=== PATIENT | female | born 1975 | race African-American/Black ===

== ENCOUNTER 2017-04-06 13:09 | Emergency (ER) | payer BC ==
[2017-04-06 13:26] VITALS: TEMP 98.9; BMI 29.2
--- NOTE | 2017-04-06 13:33 | PDOC ---
History of Present Illness - General Chief Complaint: Lightheaded Stated Complaint: DIZZINESS Time Seen by Provider: 04/06/17 13:23 History Source: Patient, Old Records Exam Limitations: No Limitations - History of Present Illness Initial Comments: 04/06/17 13:29 41 y/o female with h/o uterine fibroids, anemia and heavy menses who presents to the ED with c/o dizziness. The patient was at work at approximately 11am when she suddenly felt like she was going to "pass out, " became diaphoretic and generally weak. The patient had multiple episodes that occurred since then and decided to come to the ED. The patient denies chest pain and SOB, palpitations. There was no nausea, vomiting, diarrhea. Her LMP was 03/28/2017 and was heavy. The patient reports starting diet pills yesterday which are high in caffeine. Past History - Travel Traveled outside of the country in the last 30 days: No Close contact w/someone who was outside of country & ill: No - Past Medical History Allergies/Adverse Reactions: Allergies Allergy/AdvReac Type Severity Reaction Status Date / Time No Known Allergies Allergy Verified 04/06/17 13:10 Home Medications: Ambulatory Orders Norethindrone-E.estradiol-Iron [Loestrin Fe 1-20 Tablet] 1 each PO DAILY Anemia: Yes Suicide Attempt (Hx): No - Psycho/Social/Smoking Cessation Hx Anxiety: Yes Suicidal Ideation: No Smoking Status: No Smoking History: Never smoked Number of Cigarettes Smoked Daily: 0 Hx Alcohol Use: Yes (SOCIAL) Drug/Substance Use Hx: No Substance Use Type: Alcohol Review of Systems - Review of Systems Able to Perform ROS?: Yes Is the patient limited Swedish proficient: No Constitutional: Yes: Weakness HEENTM: No: Symptoms Reported Respiratory: No: Symptoms reported Cardiac (ROS): No: Symptoms Reported ABD/GI: No: Symptoms Reported : No: Symptoms Reported Musculoskeletal: No: Symptoms Reported Integumentary: No: Symptoms Reported Neurological: Yes: See HPI *Physical Exam - Vital Signs Last Vital Signs Temp Pulse Resp BP Pulse Ox 98.9 F 83 16 136/66 100 04/06/17 13:10 04/06/17 13:10 04/06/17 13:10 04/06/17 13:10 04/06/17 13:10 - Physical Exam Comments: 04/06/17 13:33 GENERAL: Well developed, well nourished. Awake and alert. No acute distress. HEENT: Normocephalic, atraumatic. PERRLA, EOMI. No conjunctival pallor. Sclera are non- icteric. Moist mucous membranes. Oropharynx is clear. NECK: Supple. Full ROM. No JVD. No lymphadenopathy. CARDIOVASCULAR: Regular rate and rhythm. No murmurs, rubs, or gallops. Distal pulses are 2+ and symmetric. PULMONARY: No evidence of respiratory distress. Lungs clear to auscultation bilaterally. No wheezing, rales or rhonchi. ABDOMINAL: Soft. Non-tender. Non-distended. No rebound or guarding. No organomegaly. Normoactive bowel sounds. MUSCULOSKELETAL Normal range of motion at all joints. No bony deformities or tenderness. No CVA tenderness. EXTREMITIES: No cyanosis. No clubbing. No edema. No calf tenderness. SKIN: Warm and dry. Normal capillary refill. No rashes. No jaundice. NEUROLOGICAL: Alert, awake, appropriate. Cranial nerves 2-12 intact. Grossly non-focal exam. PSYCHIATRIC: Cooperative. Good eye contact. Appropriate mood and affect. ED Treatment Course - LABORATORY CBC & Chemistry Diagram: 04/06/17 13:40 04/06/17 13:40 Medical Decision Making - Medical Decision Making 04/06/17 14:11 41 y/o female with uterine fibroids presents to the ED with c/o light- headedness. DDx includes but is not limited to: anemia, dehydration, electrolyte abnormality, toxic/metabolic derangement, ACS. Plan: 1. EKG: NSR at 80 bpm, nl axis, intervals and no acute ST-segment changes 2. Labs 3. Urine analysis 4. IVF for hydration 5. Observe and re-evaluate 04/06/17 14:23 Addendum: The labs were reviewed and are noted in the EMR. She is anemic and her platelets are elevated; troponin is negative. I have discussed the results of the studies with the patient. My suspicion for cardiac etiology or PE is very low. The patient is feeling improved after 1L IVF. Will discharge home, follow-up with PCP. RTER if Sx persist, worsen or new Sx arise. *DC/Admit/Observation/Transfer Diagnosis at time of Disposition: Light headedness - Discharge Dispostion Disposition: HOME Condition at time of disposition: Stable Admit: No - Patient Instructions Printed Discharge Instructions: DI for Dizziness-Nonvertigo Additional Instructions: You are anemic and would benefit from iron supplements. Please follow-up with your primary care physician within one week and return to the ED if your symptoms persist, worsen or new symptoms arise.
[2017-04-06 13:54] LABS: PH,URINE 6.5 (4.5-8); URINE APPEARANCE Clear; URINE BILIRUBIN Negative (NEGATIVE); URINE BLOOD Negative (NEGATIVE); URINE GLUCOSE (UA) Negative (NEGATIVE); URINE KETONE Negative (NEGATIVE); URINE LEUK ESTERASE Negative (NEGATIVE); URINE NITRITE Negative (NEGATIVE); URINE PROTEIN Negative (NEGATIVE); URINE UROBILINOGEN 0.2 E.U/dl (0.2-1.0)
[2017-04-06 13:56] LABS: URINE COLOR YELLOW
[2017-04-06 13:56] LABS: MCH 21.6 pg (25.7-33.7); MCHC 31.6 g/dl (32.0-36.0); MEAN CELL VOLUME 68.3 fl (80-96); MEAN PLT VOLUME 8.1 fl (7.5-11.1); PLATELET COUNT 618 K/MM3 (134-434); WHITE BLOOD COUNT 9.1 K/mm3 (4.0-10.8)
[2017-04-06 14:08] LABS: ALBUMIN 3.9 g/dl (3.5-5.0); ALK PHOS 37 U/L (32-92); ANION GAP 7 (8-16); CALCIUM 9.7 mg/dl (8.4-10.2); CO2 25 mmol/L (22-28); CPK(DFH) 148 IU/L (26-140); CREATININE 0.9 mg/dl (0.6-1.3); GLUCOSE,RANDOM 135 mg/dl (74-106); SGOT/AST 21 U/L (10-42); SGPT/ALT 15 U/L (10-40); TOT PROT 8.1 g/dl (6.4-8.3)
[2017-04-06] MEDS ORDERED: SODIUM CHLORIDE 1,000 ML IV STA (14:13)
[2017-04-06 14:15] LABS: TROPONIN I (DFP) < 0.03 ng/ml (0.03-0.50)
[2017-04-06 14:22] LABS: BILIRUBIN,TOTAL 0.2 mg/dl (0.2-1.0)
[2017-04-06 15:06] LABS: ANISOCYTOSIS 1+; HYPOCHROMIA 2+; MICROCYTOSIS 2+; PLATELET COMMENT2 MANY LARGE PLTS; PLATELET ESTIMATE INCREASED (NORMAL)
[2017-04-06 15:25] VITALS: BP 105/57; PULSE 77
--- NOTE | 2017-04-07 08:59 | EKG ---
Test Reason : Blood Pressure : / mmHG Vent. Rate : 070 BPM Atrial Rate : 070 BPM P-R Int : 132 ms QRS Dur : 070 ms QT Int : 388 ms P-R-T Axes : 040 036 039 degrees QTc Int : 419 ms POOR DATA QUALITY, INTERPRETATION MAY BE ADVERSELY AFFECTED NORMAL SINUS RHYTHM NORMAL ECG NO PREVIOUS ECGS AVAILABLE Confirmed by BETINA DAVILA, CHARLES ([id number]) on 04/07/2017 8:59:26 AM Referred By: NANETTE HARO Confirmed By:CHARLES MOFFETT MD
== END 2017-04-06 15:30 | disposition home or self-care (01) ==
LOC: MERGE 13:09 → FER 13:09
PROC: 3E0337Z Introduction of Electrolytic and Water Balance Substance into Peripheral Vein, Percutaneous Approach (ICD-10-PCS; principal; 2017-04-06)
DX: R42 Dizziness and giddiness (principal); D64.9 Anemia, unspecified; F41.9 Anxiety disorder, unspecified; D25.9 Leiomyoma of uterus, unspecified
CPT/HCPCS: 36415; 80053; 81003; 82550; 84484; 84703; 85025; 93005; 99283-25

== ENCOUNTER 2017-04-07 22:10 | Inpatient (IN) | payer BC, OTHER ==
--- NOTE | 2017-04-07 22:12 | PDOC ---
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 No associated problems or complaints. Seen here yesterday because she felt like she might pass out. Past History - Past Medical History Allergies/Adverse Reactions: Allergies Allergy/AdvReac Type Severity Reaction Status Date / Time No Known Allergies Allergy Verified 04/07/17 22:24 Home Medications: Ambulatory Orders NK [No Known Home Medication] 04/07/17 Review of Systems - Review of Systems Able to Perform ROS?: Yes Is the patient limited Icelandic proficient: No Constitutional: Yes: See HPI HEENTM: No: Symptoms Reported Respiratory: No: Symptoms reported Cardiac (ROS): No: Symptoms Reported ABD/GI: No: See HPI : Yes: See HPI Musculoskeletal: No: Symptoms Reported Integumentary: No: Symptoms Reported Neurological: No: Symptoms reported Psychiatric: No: Anxiety, Depression Endocrine: No: Symptoms Reported Hematologic/Lymphatic: No: Symptoms Reported All Other Systems: Reviewed and Negative *Physical Exam - Physical Exam General Appearance: Yes: Nourished, Appropriately Dressed. No: Apparent Distress HEENT: positive: EOMI, AMINA, Normal ENT Inspection, Normal Voice Neck: positive: Trachea midline, Normal Thyroid, Supple. negative: Tender Respiratory/Chest: positive: Lungs Clear, Normal Breath Sounds. negative: Chest Tender Cardiovascular: positive: Regular Rhythm, Regular Rate, S1, S2 Gastrointestinal/Abdominal: positive: Normal Bowel Sounds, Flat, Soft. 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
[2017-04-07] MEDS ORDERED: KETOROLAC TROMETHAMINE 30 MG/1 ML VIAL IVPUSH ONE (22:21)
[2017-04-07] MEDS ORDERED: SODIUM CHLORIDE 1,000 ML IV STA (22:21)
[2017-04-07 22:43] LABS: MCH 21.8 pg (25.7-33.7); MCHC 31.9 g/dl (32.0-36.0); MEAN CELL VOLUME 68.1 fl (80-96); MEAN PLT VOLUME 8.4 fl (7.5-11.1); PLATELET COUNT 544 K/MM3 (134-434); RDW 17.2 % (11.6-15.6); WHITE BLOOD COUNT 17.7 K/mm3 (4.0-10.8)
[2017-04-07] MEDS ORDERED: ONDANSETRON 4 MG/2 ML VIAL IVPUSH ONE (22:43)
[2017-04-07] MEDS ORDERED: HYDROmorphone HCL CARPU-JECT 2 MG/1 ML DISP.SYRIN IVPUSH ONE (22:43)
[2017-04-07 22:57] LABS: INR 1.17 (0.82-1.09); PROTHROMBIN TIME (PATIENT) 13.1 SEC (10.2-13.0)
[2017-04-07 22:59] LABS: ALK PHOS 38 U/L (32-92); ANION GAP 12 (8-16); CALCIUM 8.9 mg/dl (8.4-10.2); CO2 19 mmol/L (22-28); GLUCOSE,RANDOM 136 mg/dl (74-106); SGOT/AST 30 U/L (10-42); SGPT/ALT 25 U/L (10-40); TOT PROT 7.9 g/dl (6.4-8.3)
[2017-04-07 23:20] LABS: URINE APPEARANCE Clear; URINE BILIRUBIN Negative (NEGATIVE); URINE BLOOD Negative (NEGATIVE); URINE COLOR YELLOW; URINE GLUCOSE (UA) Negative (NEGATIVE); URINE KETONE 3+ (NEGATIVE); URINE LEUK ESTERASE Negative (NEGATIVE); URINE NITRITE Negative (NEGATIVE); URINE PROTEIN Negative (NEGATIVE); URINE UROBILINOGEN 0.2 E.U/dl (0.2-1.0)
[2017-04-07 23:28] LABS: ANISOCYTOSIS 1+; HYPOCHROMIA 2+; MICROCYTOSIS 2+; PLATELET ESTIMATE INCREASED (NORMAL)
[2017-04-08 00:35] VITALS: BMI 30.2
[2017-04-08] MEDS ORDERED: ACETAMINOPHEN INJECTION 100 ML IVPB ONE (01:55)
[2017-04-08] MEDS: ACETAMINOPHEN 1000 MG/100 ML VIAL (NON FORMULARY) IVPB ONE ×2 (01:58→03:04)
[2017-04-08 02:23] LABS: BASOPHIL 0.2 % (0-2.0); MEAN CELL VOLUME 67.7 fl (80-96); MEAN PLT VOLUME 8.5 fl (7.5-11.1); PLATELET COUNT 435 K/MM3 (134-434); RDW 17.5 % (11.6-15.6); WHITE BLOOD COUNT 16.6 K/mm3 (4.0-10.0)
[2017-04-08] MEDS ORDERED: HYDROmorphone HCL CARPU-JECT 2 MG/1 ML DISP.SYRIN ONE (02:44)
[2017-04-08] MEDS: HYDROmorphone HCL CARPU-JECT 1 MG/1 ML DISP.SYRIN IVPUSH ONE ×2 (02:45→03:00)
[2017-04-08] MEDS ORDERED: HYDROmorphone HCL CARPU-JECT 1 MG/1 ML DISP.SYRIN IVPUSH ONE ×6 (02:45→02:59)
--- NOTE | 2017-04-08 08:11 | CONSULT ---
- Consultation REQUESTING PROVIDER: Marian DAVILA CONSULT REQUEST: We have been asked to surgically evaluate this patient for evaluation and management of abdominal pain PCP:Manuel Dos Santos HISTORY OF PRESENT ILLNESS:41 y/o A/A/F presented w/ sudden onset of ?right flank pain followed by generalized abdominal pain w/some nausea; no vomiting; she ate w/o incident prior to the pain starting she has never had this before; she denies GI/ problems in the past; she pitts known h/o " difficult" ovulation and uterine fibroids; she had a CT scan for this in the recent past at [facility].Pain increased by moving around; decreased by lying still; she had fever in the ER; received IV Tylenol; no fever now. NOC. Her is w/ her; she denies anorexia. PMHx: none PSHx: C-S Home Medications Medication Instructions Recorded NK [No Known Home Medication] 04/07/17 Allergies Allergy/AdvReac Type Severity Reaction Status Date / Time No Known Allergies Allergy Verified 04/07/17 22:24 PHYSICAL EXAM: GENERAL: Awake, alert, and fully oriented, in no acute distress. ABDOMEN: Soft, globally tender, not distended, normoactive bowel sounds, voluntary guarding, no rebound, no masses. Enlarged uterus; no hernias. MUSCULOSKELETAL: Normal ROM at all joints. No bony deformities or tenderness. No CVA tenderness. UPPER EXTREMITIES: 2+ pulses, warm, well-perfused. No cyanosis. Cap refill <2 seconds. No peripheral edema. LOWER EXTREMITIES: 2+ pulses, warm, well-perfused. No calf tenderness. No peripheral edema. NEUROLOGICAL: Normal speech, gait not observed. PSYCH: Cooperative. Good eye contact. Appropriate mood and affect. SKIN: Warm, dry, normal turgor, no rashes or lesions noted. Vital Signs Temperature 98.8 F 04/08/17 04:21 Pulse Rate 106 H 04/08/17 04:21 Respiratory Rate 18 04/08/17 04:21 Blood Pressure 98/44 04/08/17 04:21 O2 Sat by Pulse Oximetry (%) 97 04/08/17 04:21 Lab Results WBC 16.6 K/mm3 (4.0-10.0) H 04/08/17 01:50 RBC 3.60 M/mm3 (3.60-5.2) 04/08/17 01:50 Hgb 7.5 GM/dL (10.7-15.3) L 04/08/17 01:50 Hct 24.3 % (32.4-45.2) L 04/08/17 01:50 MCV 67.7 fl (80-96) L 04/08/17 01:50 MCHC 31.0 g/dl (32.0-36.0) L 04/08/17 01:50 RDW 17.5 % (11.6-15.6) H 04/08/17 01:50 Plt Count 435 K/MM3 (134-434) H 04/08/17 01:50 Sodium 132 mmol/L (136-145) L 04/07/17 22:30 Potassium 3.8 mmol/L (3.5-5.1) 04/07/17 22:30 Chloride 101 mmol/L (98-107) 04/07/17 22:30 Carbon Dioxide 19 mmol/L (22-28) L 04/07/17 22:30 Anion Gap 12 (8-16) 04/07/17 22:30 BUN 10 mg/dl (7-18) 04/07/17 22:30 Creatinine 1.0 mg/dl (0.6-1.3) 04/07/17 22:30 Random Glucose 136 mg/dl (74-106) H 04/07/17 22:30 Calcium 8.9 mg/dl (8.4-10.2) 04/07/17 22:30 INR 1.17 (0.82-1.09) 04/07/17 22:30 CT scan a/p w/o IV or oral contrast reviewed; no primary or secondary signs of acute appendicitis; enlarged uterus IMP: abdominal pain PLAN: NPO/IVF/serial exams; pelvic US/? repeat CT scan a/p w/PO and IV contrast Will f/u. Fili Del Angel MD [facility] Visit type - Case Type Case Type: ED Admission - Emergency Emergency Visit: Yes ED Registration Date: 04/08/17 Care time: The patient presented to the Emergency Department on the above date and was hospitalized for further evaluation of their emergent condition. - New patient This patient is new to me today: Yes Date on this admission: 04/08/17 - Critical Care Critical Care patient: No
[2017-04-08 08:50] LABS: MCH 21.1 pg (25.7-33.7); MCHC 30.8 g/dl (32.0-36.0); MEAN CELL VOLUME 68.4 fl (80-96); MEAN PLT VOLUME 8.4 fl (7.5-11.1); PLATELET COUNT 445 K/MM3 (134-434); WHITE BLOOD COUNT 24.3 K/mm3 (4.0-10.8)
[2017-04-08] MEDS ORDERED: HYDROmorphone HCL CARPU-JECT 1 MG/1 ML DISP.SYRIN IVPB PRN (09:12)
[2017-04-08] MEDS ORDERED: SODIUM CHLORIDE 1,000 ML IV SCH ×2 (09:15→10:14)
[2017-04-08] MEDS ORDERED: METRONIDAZOLE 500 MG PREMIXED 100 ML IVPB SCH (10:00)
[2017-04-08] MEDS ORDERED: LEVOFLOXACIN 500 MG IVPB 100 ML IVPB SCH (10:00)
--- NOTE | 2017-04-08 10:03 | PN ---
[id number] OBJECTIVE: patient is a 41 y/o female with a past medical history of uternine fibroids and anemia. past surgical history of 15 years ago. She was admitted from the emergency department for abdominal pain. Vital Signs Temperature 98.8 F 04/08/17 04:21 Pulse Rate 106 H 04/08/17 04:21 Respiratory Rate 18 04/08/17 04:21 Blood Pressure 98/44 04/08/17 04:21 O2 Sat by Pulse Oximetry (%) 97 04/08/17 04:21 GENERAL: The patient is awake, alert, and fully oriented, anxious. . HEAD: Normal with no signs of trauma. EYES: PERRL, extraocular movements intact, pale sclera and conjunctiva clear. No ptosis. ENT: Ears normal, nares patent, oropharynx clear without exudates, moist mucous membranes. NECK: Trachea midline, full range of motion, supple. LUNGS: Breath sounds equal, clear to auscultation bilaterally, no wheezes, no crackles, no accessory muscle use. HEART: Regular rate and rhythm, S1, S2 without murmur, rub or gallop. ABDOMEN: Soft, generalized abdominal tenderness, nondistended, normoactive bowel sounds, + left cva tenderness, no guarding, no rebound, no hepatosplenomegaly, no masses. EXTREMITIES: 2+ pulses, warm, well-perfused, no edema. NEUROLOGICAL: Cranial nerves II through XII grossly intact. Normal speech, gait not observed. PSYCH: Normal mood, normal affect. SKIN: Warm, dry, normal turgor, no rashes or lesions noted Laboratory Results - last 24 hr 04/08/17 08:10 WBC 24.3 H D RBC 3.84 Hgb 8.1 L Hct 26.2 L MCV 68.4 L MCHC 30.8 L RDW 17.0 H Plt Count 445 H MPV 8.4 Active Medications Generic Name Dose Route Start Last Admin Trade Name Freq PRN Reason Stop Dose Admin Acetaminophen 1,000 mg 04/08/17 09:45 Ofirmev Injection - IVPB 04/08/17 09:46 ONCE ONE Hydromorphone HCl 1 mg 04/08/17 09:12 Dilaudid Injection - IVPB Q4H PRN Levofloxacin 100 mls @ 100 mls/hr 04/08/17 10:00 Levaquin 500 Mg Premixed Ivpb - IVPB DAILY ASHLEY Metronidazole 100 mls @ 100 mls/hr 04/08/17 10:00 Flagyl 500mg Premixed Ivpb - IVPB Q8H-IV ASHLEY Sodium Chloride 1,000 mls @ 75 mls/hr 04/08/17 09:15 Normal Saline - IV ASDIR ASHLEY ASSESSMENT/PLAN: 1) abd pain - ct scan of abd/pelvis reviewed, enlarged uterus noted, pt is febrile tmax with leukocytosis repeat ct scan of abd/pelvis with oral & IV contrast to access for abscess formation. - prn pain medication - keep npo 2) sepsis -likely secondary to pyelonephritis vs intrabdominal abscess vs appendicitis - leukocytosis pt febrile, lactic acid ordered, pending blood cultures, urine culture ordered - iv fluids increased to ns @125ml/hr - cva tenderness noted on exam advise rocephin 2gm IV - close monitoring of cbc and fever curve 3) heme microcytic anemia - hgb 8.1 unknown baseline, pt is asymptomatic maybe dilutional - advise to repeat cbc at 1800 Thank you for this consultative opportunity will follow. Problem List - Problems (1) Abdominal pain Code(s): R10.9 - UNSPECIFIED ABDOMINAL PAIN Qualifiers: Abdominal location: right lower quadrant Qualified Code(s): R10.31 - Right lower quadrant pain (2) Fever Code(s): R50.9 - FEVER, UNSPECIFIED Qualifiers: Fever type: unspecified Qualified Code(s): R50.9 - Fever, unspecified (3) Leukocytosis Code(s): D72.829 - ELEVATED WHITE BLOOD CELL COUNT, UNSPECIFIED Qualifiers: Leukocytosis type: unspecified Qualified Code(s): D72.829 - Elevated white blood cell count, unspecified Visit type - Case Type Case Type: ED Admission - Emergency Emergency Visit: Yes ED Registration Date: 04/08/17 Care time: The patient presented to the Emergency Department on the above date and was hospitalized for further evaluation of their emergent condition. - New patient This patient is new to me today: Yes Date on this admission: 04/09/17 - Critical Care Critical Care patient: No
[2017-04-08] MEDS ORDERED: ACETAMINOPHEN 1000 MG/100 ML VIAL (NON FORMULARY) IVPB ONE (10:10)
[2017-04-08] MEDS ORDERED: SODIUM CHLORIDE 1,000 ML IV STA (10:35)
[2017-04-08 13:30] LABS: GLUCOSE,RANDOM 113 mg/dl (74-106)
[2017-04-08 13:31] LABS: ALBUMIN 3.2 g/dl (3.5-5.0); ANION GAP 8 (8-16); BILIRUBIN,TOTAL 0.2 mg/dl (0.2-1.0); CO2 19 mmol/L (22-28); COCKROFT - GAULT 109.3355; CREATININE 0.8 mg/dl (0.6-1.3); SGOT/AST 20 U/L (10-42); SGPT/ALT 23 U/L (10-40); TOT PROT 6.6 g/dl (6.4-8.3)
[2017-04-08 13:32] LABS: ALK PHOS 34 U/L (32-92)
--- NOTE | 2017-04-08 14:04 | HP ---
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 No associated problems or complaints. Seen here yesterday because she felt like she might pass out. - Past Medical History ...LMP: 03/27/17 ...: No Heme/Onc: Yes: Anemia - Smoking History Smoking history: Never smoked Have you smoked in the past 12 months: No - Alcohol/Substance Use Hx Alcohol Use: No Home Medications - Allergies Allergies/Adverse Reactions: Allergies Allergy/AdvReac Type Severity Reaction Status Date / Time No Known Allergies Allergy Verified 04/07/17 22:24 - Home Medications Home Medications: Ambulatory Orders Norethindrone-E.estradiol-Iron [Loestrin Fe 1-20 Tablet] 1 each PO DAILY NK [No Known Home Medication] 04/07/17 Physical Examination Vital Signs: Vital Signs Temperature 101.3 F H 04/08/17 10:47 Pulse Rate 99 H 04/08/17 10:47 Respiratory Rate 16 04/08/17 10:47 Blood Pressure 111/49 04/08/17 10:47 O2 Sat by Pulse Oximetry (%) 97 04/08/17 04:21 Constitutional: Yes: No Distress HENT: Yes: Atraumatic Neck: Yes: Supple Cardiovascular: Yes: Regular Rate and Rhythm Respiratory: Yes: CTA Bilaterally Gastrointestinal: Yes: Normal Bowel Sounds Extremities: Yes: WNL Neurological: Yes: Alert, Oriented Labs: CBC, BMP 04/08/17 08:10 04/08/17 11:20 Problem List - Problems (1) Abdominal pain Code(s): R10.9 - UNSPECIFIED ABDOMINAL PAIN Qualifiers: Abdominal location: right lower quadrant Qualified Code(s): R10.31 - Right lower quadrant pain (2) Fever Code(s): R50.9 - FEVER, UNSPECIFIED Qualifiers: Fever type: unspecified Qualified Code(s): R50.9 - Fever, unspecified (3) Leukocytosis Code(s): D72.829 - ELEVATED WHITE BLOOD CELL COUNT, UNSPECIFIED Qualifiers: Leukocytosis type: unspecified Qualified Code(s): D72.829 - Elevated white blood cell count, unspecified Assessment/Plan Laboratory Tests 04/07/17 04/07/17 04/07/17 22:30 22:30 22:30 WBC 17.7 H RBC 4.13 Hgb 9.0 L Hct 28.1 L MCV 68.1 L MCHC 31.9 L RDW 17.2 H Plt Count 544 H MPV 8.4 Neutrophils % 88.0 H Lymphocytes % 5.0 L Monocytes % 3.0 L Eosinophils % 3.0 Basophils % Band Neutrophils 1.0 Differential Comment Many large plts Platelet Estimate Increased Platelet Comment Few giant plts Hypochromic-Microcytic 2+ Anisocytosis 1+ Microcytosis 2+ INR 1.17 Sodium 132 L Potassium 3.8 Chloride 101 Carbon Dioxide 19 L Anion Gap 12 BUN 10 Creatinine 1.0 Creat Clearance w eGFR > 60 Random Glucose 136 H Lactic Acid Calcium 8.9 Total Bilirubin 0.0 L AST 30 ALT 25 Alkaline Phosphatase 38 Total Protein 7.9 Albumin 4.0 Urine Color Urine Appearance Urine pH Ur Specific Reagan Urine Protein Urine Glucose (UA) Urine Ketones Urine Blood Urine Nitrite Urine Bilirubin Urine Urobilinogen Ur Leukocyte Esterase Urine HCG, Qual Blood Type Antibody Screen 04/07/17 04/08/17 04/08/17 23:10 01:50 08:10 WBC 16.6 H 24.3 H D RBC 3.60 3.84 Hgb 7.5 L 8.1 L Hct 24.3 L 26.2 L MCV 67.7 L 68.4 L MCHC 31.0 L 30.8 L RDW 17.5 H 17.0 H Plt Count 435 H 445 H MPV 8.5 8.4 Neutrophils % 89.0 H Lymphocytes % 4.5 L Monocytes % 6.3 Eosinophils % 0.0 Basophils % 0.2 Band Neutrophils Differential Comment Platelet Estimate Platelet Comment Hypochromic-Microcytic Anisocytosis Microcytosis INR Sodium Potassium Chloride Carbon Dioxide Anion Gap BUN Creatinine Creat Clearance w eGFR Random Glucose Lactic Acid Calcium Total Bilirubin AST ALT Alkaline Phosphatase Total Protein Albumin Urine Color Yellow Urine Appearance Clear Urine pH 7.0 Ur Specific Reagan 1.015 Urine Protein Negative Urine Glucose (UA) Negative Urine Ketones 3+ H Urine Blood Negative Urine Nitrite Negative Urine Bilirubin Negative Urine Urobilinogen 0.2 e.u/dl Ur Leukocyte Esterase Negative Urine HCG, Qual Cancelled Blood Type Antibody Screen 04/08/17 04/08/17 04/08/17 10:00 11:20 11:20 WBC RBC Hgb Hct MCV MCHC RDW Plt Count MPV Neutrophils % Lymphocytes % Monocytes % Eosinophils % Basophils % Band Neutrophils Differential Comment Platelet Estimate Platelet Comment Hypochromic-Microcytic Anisocytosis Microcytosis INR Sodium 132 L Potassium 3.6 Chloride 105 Carbon Dioxide 19 L Anion Gap 8 BUN 7 D Creatinine 0.8 Creat Clearance w eGFR > 60 Random Glucose 113 H Lactic Acid 0.874 Calcium 8.0 L Total Bilirubin 0.2 D AST 20 D ALT 23 Alkaline Phosphatase 34 Total Protein 6.6 Albumin 3.2 L Urine Color Urine Appearance Urine pH Ur Specific Reagan Urine Protein Urine Glucose (UA) Urine Ketones Urine Blood Urine Nitrite Urine Bilirubin Urine Urobilinogen Ur Leukocyte Esterase Urine HCG, Qual Negative Blood Type Antibody Screen 04/08/17 11:20 WBC RBC Hgb Hct MCV MCHC RDW Plt Count MPV Neutrophils % Lymphocytes % Monocytes % Eosinophils % Basophils % Band Neutrophils Differential Comment Platelet Estimate Platelet Comment Hypochromic-Microcytic Anisocytosis Microcytosis INR Sodium Potassium Chloride Carbon Dioxide Anion Gap BUN Creatinine Creat Clearance w eGFR Random Glucose Lactic Acid Calcium Total Bilirubin AST ALT Alkaline Phosphatase Total Protein Albumin Urine Color Urine Appearance Urine pH Ur Specific Reagan Urine Protein Urine Glucose (UA) Urine Ketones Urine Blood Urine Nitrite Urine Bilirubin Urine Urobilinogen Ur Leukocyte Esterase Urine HCG, Qual Blood Type O POSITIVE Antibody Screen Negative Active Medications Generic Name Dose Route Start Last Admin Trade Name Freq PRN Reason Stop Dose Admin Hydromorphone HCl 1 mg 04/08/17 09:12 Dilaudid Injection - IVPB Q4H PRN Meropenem 1 gm/ Dextrose 100 mls @ 100 mls/hr 04/08/17 18:00 04/08/17 17:16 IVPB 100 mls/hr Q8H-IV ASHLEY Administration Protocol
[2017-04-08] MEDS ORDERED: PT OWN MED DRAWER 7, Y5N ONE (17:12)
[2017-04-08] MEDS: MEROPENEM 1 GM in DEXTROSE 5%-WATER - 100 ML IVPB SCH (17:16)
--- NOTE | 2017-04-08 17:38 | PN ---
Progress Note (short form) - Note Progress Note: Attending Surgeon Seen in f/u Still c/o pain; she wants to eat and denies nausea and/or vomiting VSS T99.5 at 1400 hrs abdomen-globally tender; no change from previous CT scan a/p w/IV and oral contrast reviewed- no evidence of acute appendicitis; large fibroid uterus pelvic US suggested lactate normal; WBC 24K IMP:abdominal pain? 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
[2017-04-09] MEDS ORDERED: PT OWN MED DRAWER 7, Y5N ONE ×3 (00:45→18:37)
[2017-04-09] MEDS: MEROPENEM 1 GM in DEXTROSE 5%-WATER - 100 ML IVPB SCH ×3 (02:14→18:39)
--- NOTE | 2017-04-09 08:42 | PN ---
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 Fili Del Angel MD FACS
[2017-04-09 10:21] LABS: BASOPHIL 0.1 % (0-2.0); EOSINOPHIL 0.4 % (0-4.5); MCH 21.3 pg (25.7-33.7); MCHC 31.4 g/dl (32.0-36.0); MEAN CELL VOLUME 67.8 fl (80-96); MEAN PLT VOLUME 7.9 fl (7.5-11.1); NEUTROPHILS 83.5 % (42.8-82.8); PLATELET COUNT 434 K/MM3 (134-434)
--- NOTE | 2017-04-09 10:40 | CONSULT ---
Consult Consult Specialty:: infectious diseases Reason for Consultation:: sepsis,leukocytosis - History of Present Illness Chief Complaint: rt sided abd pain lower and upper quadrant History of Present Illness: 41yo female generally healthy x for anemia presents with sudden onset of pain in the lower quadrant right Patient says then the pain spread upwards also she has been having fever. otherwise relatively healthy woman spiked a fever today.pain still present - History Source History Provided By: Patient Limitations to Obtaining History: No Limitations - Past Medical History ...LMP: 03/27/17 ...: No - Alcohol/Substance Use Hx Alcohol Use: No - Smoking History Smoking history: Never smoked Have you smoked in the past 12 months: No Aproximately how many cigarettes per day: 0 Home Medications - Allergies Allergies/Adverse Reactions: Allergies Allergy/AdvReac Type Severity Reaction Status Date / Time No Known Allergies Allergy Verified 04/07/17 22:24 - Home Medications Home Medications: Ambulatory Orders Norethindrone-E.estradiol-Iron [Loestrin Fe 1-20 Tablet] 1 each PO DAILY NK [No Known Home Medication] 04/07/17 Review of Systems - Review of Systems Constitutional: reports: Fever, Other Eyes: reports: No Symptoms HENT: reports: No Symptoms Neck: reports: No Symptoms Cardiovascular: reports: No Symptoms Respiratory: reports: No Symptoms Gastrointestinal: reports: Abdominal Pain, Other Genitourinary: reports: No Symptoms Musculoskeletal: reports: No Symptoms Integumentary: reports: No Symptoms Neurological: reports: No Symptoms Endocrine: reports: No Symptoms Hematology/Lymphatic: reports: No Symptoms Psychiatric: reports: No Symptoms Physical Exam Vital Signs: Vital Signs Temperature 98.6 F 04/09/17 06:00 Pulse Rate 91 H 04/09/17 06:00 Respiratory Rate 18 04/09/17 06:00 Blood Pressure 117/43 04/09/17 06:00 O2 Sat by Pulse Oximetry (%) 98 04/09/17 06:00 Constitutional: Yes: Well Nourished, Calm, Mild Distress Eyes: Yes: Conjunctiva Clear HENT: Yes: Atraumatic Neck: Yes: Supple, Trachea Midline Cardiovascular: Yes: Regular Rate and Rhythm Respiratory: Yes: Regular, CTA Bilaterally Gastrointestinal: Yes: Soft, Hypoactive Bowel Sounds, Tenderness (rt lower quadrant and upper quadrant), Other Musculoskeletal: Yes: Other Extremities: Yes: Other Neurological: Yes: Alert, Oriented Psychiatric: Yes: Alert, Oriented Labs: CBC, BMP 04/09/17 09:50 Imaging - Results Chest X-ray: Report Reviewed, Image Reviewed Cat Scan: Report Reviewed, Image Reviewed Assessment/Plan patient admitted with suspected sepsis with leukocutosis also with fever looking at the ct scan and her symptoms i am bit worried if her lieomyomata suffered an infarct or torsion giving her this symptoms her wbc has started to come down also her rt ovary need to be looked at abd pain lieomyomata infection/torsion r/o ovary torsion sepsis Abdominal pain Code(s): R10.9 - UNSPECIFIED ABDOMINAL PAIN Qualifiers: Abdominal location: right lower quadrant Qualified Code(s): R10.31 - Right lower quadrant pain Fever Code(s): R50.9 - FEVER, UNSPECIFIED Qualifiers: Fever type: unspecified Qualified Code(s): R50.9 - Fever, unspecified Leukocytosis Code(s): D72.829 - ELEVATED WHITE BLOOD CELL COUNT, UNSPECIFIED Qualifiers: Leukocytosis type: unspecified Qualified Code(s): D72.829 - Elevated white blood cell count, unspecified plan continue abx for now i have ordered a pelvic u/s to have a better picture might need egg processor to look at her also might need transvaginal u/s
[2017-04-09 15:03] LABS: HYPOCHROMIA 2+; MICROCYTOSIS 1+; OVALOCYTES 1+; PLATELET ESTIMATE SLT INCREASED (NORMAL); POIKILOCYTOSIS FEW
--- NOTE | 2017-04-09 16:59 | PN ---
Progress Note, Physician History of Present Illness: no complaints - Current Medication List Current Medications: Active Medications Hydromorphone HCl (Dilaudid Injection -) 1 mg IVPB Q4H PRN Meropenem 1 gm/ Dextrose 100 mls @ 100 mls/hr IVPB Q8H-IV ASHLEY PRN Reason: Protocol Last Admin: 04/09/17 10:35 Dose: 100 mls/hr - Objective Vital Signs: Vital Signs Temperature 99.8 F H 04/09/17 14:37 Pulse Rate 99 H 04/09/17 14:37 Respiratory Rate 16 04/09/17 14:37 Blood Pressure 107/47 04/09/17 14:37 O2 Sat by Pulse Oximetry (%) 100 04/09/17 14:37 Constitutional: Yes: No Distress HENT: Yes: Atraumatic Neck: Yes: Supple Cardiovascular: Yes: Regular Rate and Rhythm Respiratory: Yes: CTA Bilaterally Gastrointestinal: Yes: Normal Bowel Sounds Extremities: Yes: WNL Neurological: Yes: Alert, Oriented Labs: CBC, BMP 04/09/17 09:50 INR, PTT INR 1.17 (0.82-1.09) 04/07/17 22:30 Problem List - Problems (1) Abdominal pain Assessment/Plan: better on prn pain meds Code(s): R10.9 - UNSPECIFIED ABDOMINAL PAIN Qualifiers: Abdominal location: right lower quadrant Qualified Code(s): R10.31 - Right lower quadrant pain (2) Fever Assessment/Plan: monitor...resolved Code(s): R50.9 - FEVER, UNSPECIFIED Qualifiers: Fever type: unspecified Qualified Code(s): R50.9 - Fever, unspecified (3) Leukocytosis Code(s): D72.829 - ELEVATED WHITE BLOOD CELL COUNT, UNSPECIFIED Qualifiers: Leukocytosis type: unspecified Qualified Code(s): D72.829 - Elevated white blood cell count, unspecified
[2017-04-09] MEDS ORDERED: BISACODYL 10 MG SUPP.RECT RC PRN (19:45)
[2017-04-09] MEDS: POLYETHYLENE GLYCOL 3350 119 GM BTL PO SCH (21:41)
[2017-04-10] MEDS ORDERED: PT OWN MED DRAWER 7, Y5N ONE ×4 (01:48→23:48)
[2017-04-10] MEDS: MEROPENEM 1 GM in DEXTROSE 5%-WATER - 100 ML IVPB SCH ×3 (01:53→17:32)
--- NOTE | 2017-04-10 08:57 | CON.OBG ---
Consult Consult Specialty:: gynecology Reason for Consultation:: r/o ovarian torsion - History of Present Illness History of Present Illness: 41 yo presented on 04/07 with severe R-sided lamont-umbilical pain, radiating to R flank She reports pain started suddenly and was described as dull, throbbing. The pain then progressed over approximately 30 minutes to severe, sharp pain, radiating to R flank. She reported associated nausea without emesis. She presented to the ED where she was given IV medication that made her "loopy" and mildly improved pain. Here she was found to have an elevated WBC and was admitted for management. She reports a longstanding history of fibroids, managed by Dr. Delgado in [place]. She noted onset of menorrhagia and worsening dysmenorrhea several months ago. She was recently seen approximately 6 weeks ago for her routine gynecologic visit and was started on combined oral contraceptives for management of symptoms. She notes improvement in her menstural flow since then. Now she reports improvement in her pain, no longer any fevers or chills. She denies nausea or vomiting, tolerating PO intake. She started her menses yesterday. POB Hx: x 1 CD x 2 PGYNHx: normal pap 03/2017 Hx/o HPV ~2015 denies hx/o STI Reports known hx/o fibroid uterus - History Source History Provided By: Patient - Past Medical History Cardio/Vascular: No: HTN Pulmonary: No: Asthma ...LMP: 03/27/17 ...: No ...: 4 ...Para: 3 Heme/Onc: Yes: Anemia - Past Surgical History Additional Surgical History: CD x2 - Alcohol/Substance Use Hx Alcohol Use: No - Smoking History Smoking history: Never smoked Have you smoked in the past 12 months: No Aproximately how many cigarettes per day: 0 - Social History History of Recent Travel: No Home Medications - Allergies Allergies/Adverse Reactions: Allergies Allergy/AdvReac Type Severity Reaction Status Date / Time No Known Allergies Allergy Verified 04/07/17 22:24 - Home Medications Home Medications: Ambulatory Orders Norethindrone-E.estradiol-Iron [Loestrin Fe 1-20 Tablet] 1 each PO DAILY NK [No Known Home Medication] 04/07/17 Family Disease History - Family Disease History Family History: Unremarkable Review of Systems - Review of Systems Constitutional: reports: No Symptoms Cardiovascular: reports: No Symptoms Respiratory: reports: No Symptoms Gastrointestinal: reports: No Symptoms Genitourinary: reports: No Symptoms Neurological: reports: No Symptoms Endocrine: reports: No Symptoms Psychiatric: reports: No Symptoms 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 Signs: Vital Signs Temperature 98.8 F 04/10/17 06:21 Pulse Rate 96 H 04/10/17 06:21 Respiratory Rate 18 04/10/17 06:21 Blood Pressure 104/66 04/10/17 06:21 O2 Sat by Pulse Oximetry (%) 100 04/10/17 06:21 Constitutional: Yes: Well Nourished, No Distress, Calm Cardiovascular: Yes: Regular Rate and Rhythm Respiratory: Yes: CTA Bilaterally Gastrointestinal: Yes: Soft, Tenderness (mild R sided lamont-umbilical tenderness , no rebound or guarding) Internal Exam Deferred: Yes Uterus: Yes: Enlarged, Firm Extremities: Yes: WNL Edema: No Integumentary: Yes: WNL Neurological: Yes: Alert, Oriented ...Motor Strength: WNL Psychiatric: Yes: Alert, Oriented Labs: CBC, BMP 04/09/17 09:50 Assessment/Plan 41 yo HD #4 admitted with leukocytosis, r/o sepsis, detail assembler consult to r/o ovarian torsion Reviewed CT and ultrasound findings - ovarian cyst on R ovary 2.4 x 2.0 x 2.3 cm. Reviewed ovarian cyst and size would not likely cause torsion, also noted bilateral flow to ovaries on doppler evaluation. Known hx/o uterine fibroids, menorrhagia, dysmenorrea - started on OCP for management. Reports noted improvement in symptoms on OCP, however stopped OCP on admission. Now having withdrawal bleed secondary to stopping OCP. Encourage to start new pack as soon as discharged. No acute surgical detail assembler concerns at this time. Patient to follow up [facility] Dr. Delgado as outpatient. All patient questions and concerns answered. Thank you for the consult.
[2017-04-10] MEDS: POLYETHYLENE GLYCOL 3350 119 GM BTL PO SCH ×2 (09:25→21:33)
--- NOTE | 2017-04-10 13:36 | PN ---
Progress Note, Physician History of Present Illness: no complaints - Current Medication List Current Medications: Active Medications Bisacodyl (Dulcolax Suppository -) 10 mg RC PRN PRN PRN Reason: CONSTIPATION Last Admin: 04/09/17 20:53 Dose: 10 mg Hydromorphone HCl (Dilaudid Injection -) 1 mg IVPB Q4H PRN Meropenem 1 gm/ Dextrose 100 mls @ 100 mls/hr IVPB Q8H-IV ASHLEY PRN Reason: Protocol Last Admin: 04/10/17 09:25 Dose: 100 mls/hr Polyethylene Glycol (Miralax (For Daily Use) -) 17 gm PO BID ASHLEY Last Admin: 04/10/17 09:25 Dose: Not Given - Objective Vital Signs: Vital Signs Temperature 98.8 F 04/10/17 06:21 Pulse Rate 96 H 04/10/17 06:21 Respiratory Rate 18 04/10/17 06:21 Blood Pressure 104/66 04/10/17 06:21 O2 Sat by Pulse Oximetry (%) 100 04/10/17 06:21 Constitutional: Yes: No Distress HENT: Yes: Atraumatic Neck: Yes: Supple Cardiovascular: Yes: Regular Rate and Rhythm Respiratory: Yes: CTA Bilaterally Gastrointestinal: Yes: Normal Bowel Sounds Extremities: Yes: WNL Neurological: Yes: Alert, Oriented Labs: CBC, BMP 04/09/17 09:50 INR, PTT INR 1.17 (0.82-1.09) 04/07/17 22:30 Problem List - Problems (1) Abdominal pain Assessment/Plan: better on prn pain meds Code(s): R10.9 - UNSPECIFIED ABDOMINAL PAIN Qualifiers: Abdominal location: right lower quadrant Qualified Code(s): R10.31 - Right lower quadrant pain (2) Fever Assessment/Plan: monitor...resolved Code(s): R50.9 - FEVER, UNSPECIFIED Qualifiers: Fever type: unspecified Qualified Code(s): R50.9 - Fever, unspecified (3) Leukocytosis Code(s): D72.829 - ELEVATED WHITE BLOOD CELL COUNT, UNSPECIFIED Qualifiers: Leukocytosis type: unspecified Qualified Code(s): D72.829 - Elevated white blood cell count, unspecified Assessment/Plan WILL DO TRANS VAGINAL US REPEAT UCX CONTINUE ABX
--- NOTE | 2017-04-10 15:05 | PN ---
Progress Note, Physician History of Present Illness: patient feels slightly better still with some pain - Current Medication List Current Medications: Active Medications Bisacodyl (Dulcolax Suppository -) 10 mg RC PRN PRN PRN Reason: CONSTIPATION Last Admin: 04/09/17 20:53 Dose: 10 mg Hydromorphone HCl (Dilaudid Injection -) 1 mg IVPB Q4H PRN Meropenem 1 gm/ Dextrose 100 mls @ 100 mls/hr IVPB Q8H-IV ASHLEY PRN Reason: Protocol Last Admin: 04/10/17 09:25 Dose: 100 mls/hr Polyethylene Glycol (Miralax (For Daily Use) -) 17 gm PO BID ASHLEY Last Admin: 04/10/17 09:25 Dose: Not Given - Objective Vital Signs: Vital Signs Temperature 98.7 F 04/10/17 14:14 Pulse Rate 80 04/10/17 14:14 Respiratory Rate 16 04/10/17 14:14 Blood Pressure 105/55 04/10/17 14:14 O2 Sat by Pulse Oximetry (%) 100 04/10/17 14:14 Constitutional: Yes: Calm Cardiovascular: Yes: Regular Rate and Rhythm Respiratory: Yes: Regular, CTA Bilaterally Gastrointestinal: Yes: Normal Bowel Sounds, Tenderness, Other Musculoskeletal: Yes: WNL Extremities: Yes: WNL Neurological: Yes: Alert, Oriented Psychiatric: Yes: Alert, Oriented Labs: CBC, BMP 04/09/17 09:50 INR, PTT INR 1.17 (0.82-1.09) 04/07/17 22:30 - ....Imaging Ultrasound: Report Reviewed, Image Reviewed Assessment/Plan patient admitted with suspected sepsis with leukocutosis also with fever looking at the ct scan and her symptoms i am bit worried if her lieomyomata suffered an infarct or torsion giving her this symptoms her wbc has started to come down also her rt ovary need to be looked at abd pain lieomyomata infection/torsion r/o ovary torsion sepsis Abdominal pain Code(s): R10.9 - UNSPECIFIED ABDOMINAL PAIN Qualifiers: Abdominal location: right lower quadrant Qualified Code(s): R10.31 - Right lower quadrant pain Fever Code(s): R50.9 - FEVER, UNSPECIFIED Qualifiers: Fever type: unspecified Qualified Code(s): R50.9 - Fever, unspecified Leukocytosis Code(s): D72.829 - ELEVATED WHITE BLOOD CELL COUNT, UNSPECIFIED Qualifiers: Leukocytosis type: unspecified Qualified Code(s): D72.829 - Elevated white blood cell count, unspecified plan continue abx will check wbc tomorrow then decide about abx rare chance patient could have had p[yelo
[2017-04-11] MEDS: MEROPENEM 1 GM in DEXTROSE 5%-WATER - 100 ML IVPB SCH (01:22)
[2017-04-11 08:05] LABS: BASOPHIL 0.3 % (0-2.0); EOSINOPHIL 5.3 % (0-4.5); MCH 20.7 pg (25.7-33.7); MCHC 30.6 g/dl (32.0-36.0); MEAN CELL VOLUME 67.8 fl (80-96); MEAN PLT VOLUME 8.2 fl (7.5-11.1); NEUTROPHILS 56.8 % (42.8-82.8); PLATELET COUNT 492 K/MM3 (134-434); RDW 17.5 % (11.6-15.6); WHITE BLOOD COUNT 8.9 K/mm3 (4.0-10.8)
[2017-04-11 08:20] LABS: ALBUMIN 2.9 g/dl (3.5-5.0); ALK PHOS 32 U/L (32-92); ANION GAP 6 (8-16); CALCIUM 8.3 mg/dl (8.4-10.2); CO2 23 mmol/L (22-28); CREATININE 0.6 mg/dl (0.6-1.3); GLUCOSE,RANDOM 105 mg/dl (74-106); SGOT/AST 12 U/L (10-42); SGPT/ALT 15 U/L (10-40); TOT PROT 6.3 g/dl (6.4-8.3)
[2017-04-11 08:33] LABS: BILIRUBIN,TOTAL 0.3 mg/dl (0.2-1.0)
--- NOTE | 2017-04-11 08:34 | PN ---
Progress Note, Physician History of Present Illness: patient not feeling well still has lot of pain - Current Medication List Current Medications: Active Medications Bisacodyl (Dulcolax Suppository -) 10 mg RC PRN PRN PRN Reason: CONSTIPATION Last Admin: 04/09/17 20:53 Dose: 10 mg Hydromorphone HCl (Dilaudid Injection -) 1 mg IVPB Q4H PRN Last Admin: 04/11/17 04:31 Dose: 1 mg Meropenem 1 gm/ Dextrose 100 mls @ 100 mls/hr IVPB Q8H-IV ASHLEY PRN Reason: Protocol Last Admin: 04/11/17 01:22 Dose: 100 mls/hr Polyethylene Glycol (Miralax (For Daily Use) -) 17 gm PO BID ASHLEY Last Admin: 04/10/17 21:33 Dose: Not Given - Objective Vital Signs: Vital Signs Temperature 98.2 F 04/11/17 05:35 Pulse Rate 80 04/11/17 05:35 Respiratory Rate 18 04/11/17 05:35 Blood Pressure 109/68 04/11/17 05:35 O2 Sat by Pulse Oximetry (%) 100 04/11/17 05:35 Constitutional: Yes: No Distress, Calm Cardiovascular: Yes: Regular Rate and Rhythm Respiratory: Yes: Regular, CTA Bilaterally Gastrointestinal: Yes: Normal Bowel Sounds, Soft Musculoskeletal: Yes: WNL Extremities: Yes: WNL Neurological: Yes: Alert, Oriented Psychiatric: Yes: Alert, Oriented Labs: CBC, BMP 04/11/17 07:27 04/11/17 07:00 INR, PTT INR 1.17 (0.82-1.09) 04/07/17 22:30 Assessment/Plan abd pain lieomyomata infection/torsion r/o ovary torsion sepsis Abdominal pain Code(s): R10.9 - UNSPECIFIED ABDOMINAL PAIN Qualifiers: Abdominal location: right lower quadrant Qualified Code(s): R10.31 - Right lower quadrant pain Fever Code(s): R50.9 - FEVER, UNSPECIFIED Qualifiers: Fever type: unspecified Qualified Code(s): R50.9 - Fever, unspecified Leukocytosis Code(s): D72.829 - ELEVATED WHITE BLOOD CELL COUNT, UNSPECIFIED Qualifiers: Leukocytosis type: unspecified Qualified Code(s): D72.829 - Elevated white blood cell count, unspecified wbc has normalized pain still present plan await for urine cx once we have that we will decide will deescalate abx rest continue current mgmt
[2017-04-11] MEDS: CEFTRIAXONE 50 ML IVPB SCH (10:19)
[2017-04-11] MEDS: POLYETHYLENE GLYCOL 3350 119 GM BTL PO SCH ×2 (10:20→22:35)
[2017-04-11 14:03] LABS: PLATELET ESTIMATE SLT INCREASED (NORMAL)
[2017-04-11 14:04] LABS: ANISOCYTOSIS 1+; BURR CELLS 1+; HYPOCHROMIA 2+; MICROCYTOSIS 1+; OVALOCYTES 1+
--- NOTE | 2017-04-11 19:08 | PN ---
Progress Note, Physician History of Present Illness: no complaints - Current Medication List Current Medications: Active Medications Bisacodyl (Dulcolax Suppository -) 10 mg RC PRN PRN PRN Reason: CONSTIPATION Last Admin: 04/09/17 20:53 Dose: 10 mg Ceftriaxone Sodium (Rocephin 1gm Ivpb (Pre-Docked)) 50 mls @ 100 mls/hr IVPB DAILY [facility] Last Admin: 04/11/17 10:19 Dose: 100 mls/hr Polyethylene Glycol (Miralax (For Daily Use) -) 17 gm PO BID [facility] Last Admin: 04/11/17 10:20 Dose: Not Given - Objective Vital Signs: Vital Signs Temperature 98.6 F 04/11/17 14:11 Pulse Rate 75 04/11/17 14:11 Respiratory Rate 16 04/11/17 14:11 Blood Pressure 113/61 04/11/17 14:11 O2 Sat by Pulse Oximetry (%) 100 04/11/17 14:11 Constitutional: Yes: No Distress HENT: Yes: Atraumatic Neck: Yes: Supple Cardiovascular: Yes: Regular Rate and Rhythm Respiratory: Yes: CTA Bilaterally Gastrointestinal: Yes: Normal Bowel Sounds Extremities: Yes: WNL Neurological: Yes: Alert, Oriented Labs: CBC, BMP 04/11/17 07:27 04/11/17 07:00 INR, PTT INR 1.17 (0.82-1.09) 04/07/17 22:30 Problem List - Problems (1) Abdominal pain Assessment/Plan: better on prn pain meds Code(s): R10.9 - UNSPECIFIED ABDOMINAL PAIN Qualifiers: Abdominal location: right lower quadrant Qualified Code(s): R10.31 - Right lower quadrant pain (2) Fever Assessment/Plan: monitor...resolved Code(s): R50.9 - FEVER, UNSPECIFIED Qualifiers: Fever type: unspecified Qualified Code(s): R50.9 - Fever, unspecified (3) Leukocytosis Code(s): D72.829 - ELEVATED WHITE BLOOD CELL COUNT, UNSPECIFIED Qualifiers: Leukocytosis type: unspecified Qualified Code(s): D72.829 - Elevated white blood cell count, unspecified Assessment/Plan
[2017-04-12] MEDS: CEFTRIAXONE 50 ML IVPB SCH (10:35)
[2017-04-12] MEDS: POLYETHYLENE GLYCOL 3350 119 GM BTL PO SCH (10:36)
[2017-04-12 14:19] VITALS: BP 120/67; PULSE 74; TEMP 98.2
--- NOTE | 2017-04-12 16:08 | PN ---
Progress Note, Physician History of Present Illness: patient not feeling well pain improving - Current Medication List Current Medications: Active Medications Bisacodyl (Dulcolax Suppository -) 10 mg RC PRN PRN PRN Reason: CONSTIPATION Last Admin: 04/09/17 20:53 Dose: 10 mg Ceftriaxone Sodium (Rocephin 1gm Ivpb (Pre-Docked)) 50 mls @ 100 mls/hr IVPB DAILY [facility] Last Admin: 04/12/17 10:35 Dose: 100 mls/hr Polyethylene Glycol (Miralax (For Daily Use) -) 17 gm PO BID [facility] Last Admin: 04/12/17 10:36 Dose: Not Given - Objective Vital Signs: Vital Signs Temperature 98.2 F 04/12/17 14:18 Pulse Rate 74 04/12/17 14:18 Respiratory Rate 18 04/12/17 14:18 Blood Pressure 120/67 04/12/17 14:18 O2 Sat by Pulse Oximetry (%) 100 04/12/17 14:18 Constitutional: Yes: Calm, Mild Distress Neck: Yes: Supple Cardiovascular: Yes: Regular Rate and Rhythm Respiratory: Yes: Regular, CTA Bilaterally Gastrointestinal: Yes: Normal Bowel Sounds, Soft Musculoskeletal: Yes: WNL Extremities: Yes: WNL Neurological: Yes: Alert, Oriented Psychiatric: Yes: Alert, Oriented Labs: CBC, BMP 04/11/17 07:27 04/11/17 07:00 INR, PTT INR 1.17 (0.82-1.09) 04/07/17 22:30 Assessment/Plan abd pain lieomyomata infection/torsion r/o ovary torsion sepsis Abdominal pain Code(s): R10.9 - UNSPECIFIED ABDOMINAL PAIN Qualifiers: Abdominal location: right lower quadrant Qualified Code(s): R10.31 - Right lower quadrant pain Fever Code(s): R50.9 - FEVER, UNSPECIFIED Qualifiers: Fever type: unspecified Qualified Code(s): R50.9 - Fever, unspecified Leukocytosis Code(s): D72.829 - ELEVATED WHITE BLOOD CELL COUNT, UNSPECIFIED Qualifiers: Leukocytosis type: unspecified Qualified Code(s): D72.829 - Elevated white blood cell count, unspecified wbc has normalized pain still present plan urine cx negative stop all abx
[2017-04-12 16:57] LABS: WHITE BLOOD COUNT 11.8 K/mm3 (4.0-10.8)
[2017-04-12 16:58] LABS: MCH 21.4 pg (25.7-33.7); MCHC 31.8 g/dl (32.0-36.0); MEAN CELL VOLUME 67.3 fl (80-96); PLATELET COUNT 546 K/MM3 (134-434); RDW 17.4 % (11.6-15.6)
--- NOTE | 2017-04-12 17:04 | DS ---
Physical Examination Vital Signs: Vital Signs Temperature 98.2 F 04/12/17 14:18 Pulse Rate 74 04/12/17 14:18 Respiratory Rate 18 04/12/17 14:18 Blood Pressure 120/67 04/12/17 14:18 O2 Sat by Pulse Oximetry (%) 100 04/12/17 14:18 Constitutional: Yes: No Distress Eyes: Yes: WNL HENT: Yes: WNL Neck: Yes: WNL Cardiovascular: Yes: WNL Respiratory: Yes: WNL Gastrointestinal: Yes: WNL Renal/: Yes: WNL Musculoskeletal: Yes: WNL Extremities: Yes: WNL Edema: No Peripheral Pulses WNL: Yes Integumentary: Yes: WNL Wound/Incision: Yes: Clean/Dry Neurological: Yes: WNL ...Motor Strength: WNL Psychiatric: Yes: WNL Labs: CBC, BMP 04/12/17 16:30 04/11/17 07:00 Discharge Summary Reason For Visit: ABDOMINAL PAIN, FEVER, LEUKOCYTOSIS Current Active Problems Abdominal pain (Acute) Fever (Acute) Leukocytosis (Acute) Procedures: Principal: CT SCAN/SONO Other Procedures: LABS/CX Hospital Course: ADMITTED WORKED UP FOR OVARIAN CYS/HEMMHORAGE AND TREATED PAIN CONTROL IV ABX, ANEMIA STABLE F/U OUT PATIENT WITH PMD IN 2 DAYS Condition: Stable - Instructions Diet, Activity, Other Instructions: SEE YOUR PMD 2 DAYS Disposition: HOME - Home Medications Comprehensive Discharge Medication List: Ambulatory Orders Norethindrone-E.estradiol-Iron [Loestrin Fe 1-20 Tablet] 1 each PO DAILY Polyethylene Glycol 3350 [Miralax 119 gm Btl -] 17 gm PO BID bottle 04/12/17
== END 2017-04-12 18:10 | disposition home or self-care (01) | DRG 392 ==
LOC: FER 22:10 → FM/S 04-08 02:44 → OBSVTOIN 04-08 14:05
PROVIDERS: ADMIT Internal Medicine; ATTEND Internal Medicine
DX: R10.31 Right lower quadrant pain (principal); R50.9 Fever, unspecified; D72.829 Elevated white blood cell count, unspecified; D50.9 Iron deficiency anemia, unspecified
CPT/HCPCS: 36415; 71020-TC; 74176-TC; 74177-TC; 76830-TC; 76856-TC; 80053; 81003; 83605; 84703; 85025; 85027; 85610; 86850; 86900; 86901; 87040; 87086; 87491; 87591; 99281-25; G0378